=== PATIENT | female | born 1990 | race Caucasian/White ===

== ENCOUNTER → 2018-05-01 | Outpatient (CLI) | payer BC ==
[~2018-05-01] MED LIST: IBU800 M1 PO; PRENATAL
== END ==
LOC: SUN.DIA 09:32
DX: O24.419 Gestational diabetes mellitus in pregnancy, unspecified control (principal); Z3A.30 30 weeks gestation of pregnancy; E28.2 Polycystic ovarian syndrome; Z71.3 Dietary counseling and surveillance
CPT/HCPCS: G0108

== ENCOUNTER → 2018-05-15 | Outpatient (CLI) | payer BC | LOC: SUN.DIA 08:49 | DX: O24.419 Gestational diabetes mellitus in pregnancy, unspecified control (principal); Z3A.32 32 weeks gestation of pregnancy; E28.2 Polycystic ovarian syndrome; Z71.3 Dietary counseling and surveillance | CPT/HCPCS: G0108 ==

== ENCOUNTER → 2018-06-11 | Outpatient (CLI) | payer BC | LOC: SUN.DIA 13:06 | DX: E11.9 Type 2 diabetes mellitus without complications (principal); E03.9 Hypothyroidism, unspecified | CPT/HCPCS: G0108 ==

== ENCOUNTER 2018-06-25 20:28 | Outpatient (CLI) | payer BC ==
[~2018-06-25] VITALS: Ht 175.3 cm; Wt 78.6 kg
[2018-06-25 20:40] VITALS: BP 116/70; PULSE 103; TEMP 98.1
[2018-06-25 20:46] VITALS: BP 116/70; PULSE 103; TEMP 98.1
== END 2018-06-25 21:55 | disposition home or self-care (01) ==
LOC: LDRO 20:28
DX: O62.9 Abnormality of forces of labor, unspecified (principal); Z3A.37 37 weeks gestation of pregnancy

== ENCOUNTER 2020-02-24 19:53 | Outpatient (CLI) | payer BC ==
[~2020-02-24] VITALS: Ht 172.7 cm; Wt 82.3 kg
--- NOTE | 2020-02-24 19:26 | NUR ---
Ambulatory to unit for labor check, accompanied by spouse. Pt reports "the Dr swept my membranes today in the office @ 0340. We stayed in town because I was katty. I'm ready to have this baby."Oriented to room, monitor, plan of care.
--- NOTE | 2020-02-24 19:36 | NUR ---
SVE with no changes noted from office exam this afternoon, small amount of dark blood on exam glove.
[~2020-02-24 19:53] MED LIST changes: +IBU600 MG PO; +PERCOCET 325 MG1 TA2 PO
[2020-02-24 20:04] VITALS: BP 117/78; PULSE 101; TEMP 98
--- NOTE | 2020-02-24 20:35 | NUR ---
Repeat SVE with no dilation changes noted, just change in cervical location. pt discouraged. Up to ambulate for 1 hour and reassess.
[2020-02-24 20:36] VITALS: BP 117/82; PULSE 100
[2020-02-24 21:40] VITALS: BP 118/71; PULSE 96
--- NOTE | 2020-02-24 22:00 | NUR ---
Discussed plan of care options with pt et saurav. Pt requests to stay additional hour to see if contractions subside if she lays down. Off monitor, encouraged to rest
[2020-02-24 22:50] VITALS: BP 110/65; PULSE 98
--- NOTE | 2020-02-24 23:00 | NUR ---
repeat SVE with no changes noted.
--- NOTE | 2020-02-24 23:20 | NUR ---
Discharge instructions reviewed with pt and spouse, questions invited and answered. Ambultatory off unit.
== END 2020-02-24 23:20 | disposition home or self-care (01) ==
LOC: LDRO 19:53 → LDR 20:04 → LDRO 23:20 → LDR 23:20
DX: O62.9 Abnormality of forces of labor, unspecified (principal); Z3A.38 38 weeks gestation of pregnancy
CPT/HCPCS: OP

== ENCOUNTER 2020-03-02 17:27 | Inpatient (IN) | payer BC ==
[2020-03-02] VITALS (18 sets, daily range): BP systolic 105–132; BP diastolic 56–83; PULSE 67–125; TEMP 98.2–98.6
[~2020-03-02] VITALS: Ht 175.3 cm; Wt 82.7 kg
--- NOTE | 2020-03-02 17:25 | NUR ---
PATIENT HERE IN LABOR AND DELIVERY. PATIENT HAD MEMBRANES DTRIPPED AT OFFICE AROUND 1300 AND HAS BEEN [place] EVER SINCE. PATIENT COMPLAINS OF CONTRACTIONS. DENIES LEAKING OF FLUID, OR BLEEDING. PATIENT CHANGED INTO GOWN, ON EFM, VITALS OBTAINED,SVE COMPLETED, ASSESMENT COMPLETE, DR REDDY CALLED. IV STARTED, CONSENTS SIGNED. QUESTIONS ANSWERED. PATIENT DESIRES EPIDURAL. DEEPALI WEINER CALLED. AT BEDSIDE. BOTH PATIENT AND WEARING MASKS
--- NOTE | 2020-03-02 19:00 | NUR ---
1899 FEELING SHAKY AND HAVING SOME PRESSURE. SVE /-[address] REDDY NOTIFIED AND REPORT GIVEN. ANAND CATH INSERTED AND TURNED TO RL FOR COMFORT.
[2020-03-02 19:30] LABS: BASO % 0.2 % (0.0-2.0); EOS # 0.1 (0.0-0.7); EOS % 1.1 % (0-4.0); GRAN # 9.1 (1.4-6.5); GRAN % 68.7 % (42.2-75.2); HEMATOCRIT 39.5 % (37.0-47.0); HEMOGLOBIN 13.2 g/dl (12.5-16.0); LYMPH # 2.8 (1.2-3.4); LYMPH % 21.2 % (20.0-51.0); MEAN CELL VOLUME 85 fl (80.0-100.0); MEAN CORPUSCULAR HEMOGLOBIN 28 pg (27.0-31.0); MEAN CORPUSCULAR HGB CONC 33 g/dl (33.0-37.0); MEAN PLATELET VOLUME 12.5 fl (7.4-10.4); MONO # 1.1 (0.1-0.6); MONO % 8.3 % (1.7-9.3); PLATELET COUNT 203 K/mm3 (130-400); RED BLOOD COUNT 4.64 M/mm3 (4.10-5.30); REDCELL DISTRIBUTION WIDTH-CV 12.1 % (11.5-14.5)
--- NOTE | 2020-03-02 20:25 | NUR ---
[address] REDDY AT BEDSIDE. READIED FOR DELIVERY 2030 DEL VIABLE MALE OVER 2ND DEGREE LAC. REMAINS IN LR4. IV FLUIDS CONT.
--- NOTE | 2020-03-02 22:40 | NUR ---
2240 IV TO INT. EPID CATH REMOVED. AMB TO BR WITH ASSIST. VOIDED 400CC. PERICARE DONE. AMB TO 208. ORIENTED TO ROOM. TRESSA WELL.
[2020-03-03 01:30] VITALS: BP 96/51; PULSE 91; TEMP 98.7
[2020-03-03 07:05] VITALS: BP 98/60; PULSE 67; TEMP 98
[2020-03-03] MEDS ORDERED: IBU800 M1 PO (09:29)
[2020-03-03 15:59] VITALS: BP 91/50; PULSE 67; TEMP 97.7
[2020-03-03 21:40] VITALS: BP 114/62; PULSE 68; TEMP 98.2
[2020-03-04 08:02] VITALS: BP 110/64; PULSE 76; TEMP 98.1
== END 2020-03-04 09:49 | disposition home or self-care (01) | DRG 807 ==
LOC: LDR 17:27 → OB 20:40 → LDR 03-03 15:33 → OB 03-04 09:49
PROVIDERS: Obstetrics & Gynecology; ADMIT Obstetrics & Gynecology
PROC: 10E0XZZ Delivery of Products of Conception, External Approach (ICD-10-PCS; principal; 2020-03-02)
PROC: 0KQM0ZZ Repair Perineum Muscle, Open Approach (ICD-10-PCS; 2020-03-02)
DX: O99.62 Diseases of the digestive system complicating childbirth (principal); Z37.0 Single live birth; K21.9 Gastro-esophageal reflux disease without esophagitis; O99.02 Anemia complicating childbirth; D64.9 Anemia, unspecified; O70.1 Second degree perineal laceration during delivery; Z3A.39 39 weeks gestation of pregnancy
CPT/HCPCS: J2590; J7120